=== PATIENT | male | born 2000 | race Caucasian/White ===

== ENCOUNTER 2020-08-29 03:44 | Inpatient (IN) ==
[2020-08-29] MEDS ORDERED: ONDANSETRON INJ 2 MG/ML 2 ML VIAL IV STA (04:05)
[2020-08-29] MEDS ORDERED: SODIUM CHLORIDE 0.9% 1000ML 1,000 ML IV SCH ×2 (04:15→05:30)
[2020-08-29] MEDS: MoRPHine SULFATE 4 MG/ML 1 ML CARP\\VIAL IV PRN ×2 (04:25→07:04)
[2020-08-29 04:36] LABS: Hematocrit (blood only) 43.3 % (42-52); Mean Corpuscular Hemoglobin 31.2 pg (25-34); Mean Corpuscular Hgb Conc 34.6 g/dL (32-36); Mean Platelet Volume 10.3 fL (7.4-10.4); Platelet Count 351 K/uL (130-400); RDW Coefficient of Variation 13.4 % (11.5-14.5); Red Blood Count 4.81 M/uL (4.7-6.1); White Blood Count 25.12 K/uL (4.8-10.8)
[2020-08-29 04:39] LABS: Appearance Urine Clear (Clear); Bacteria Urine Automated Negative (Negative); Blood Urine Negative (Negative); Color Urine Orange; Epithelial Cell Urine Auto >30 /lpf (0-5); Glucose Urine UA Negative (Negative); Ketones Urine 1+ (Negative); Leukocyte Esterase Urine Negative (Negative); Nitrite Urine Negative (Negative); Protein Urine 1+ (Negative); RBC Urine Automated 0-4 /hpf (0-4); Specific Gravity Urine 1.038 (1.000-1.030); Urobilinogen Urine Negative (Negative); pH Urine 6.5 (4.5-7.5)
[2020-08-29 04:57] LABS: Albumin Level 3.8 gm/dl (3.4-5.0); BUN Creatinine Ratio 17.6 (10-20); Calcium 8.9 mg/dl (8.5-10.1); Creatinine Clr Calc Pharmacy 146.4 ml/min; Est GFR (African American) 144.4 ml/min; Est GFR (Non-African American) 124.6 ml/min; Magnesium 1.9 mg/dl (1.8-2.4); Potassium 4.1 mmol/L (3.5-5.1)
[2020-08-29 05:00] LABS: Globulin 3.7 gm/dl (2.5-4.0); Total Protein 7.5 gm/dl (6.4-8.2)
[2020-08-29] MEDS ORDERED: cefOXitin 2,000 MG/60 ML BAG IV STA (05:22)
[2020-08-29 05:23] LABS: Bilirubin Urine 1+ (Negative)
[2020-08-29 05:25] LABS: Mucus Urine Present (None Prsent)
[2020-08-29 06:02] LABS: Basophils # (auto) 0.01 K/uL (0-0.2); Immature Granulocytes # (auto) 0.12 K/uL (0.00-0.02); Immature Granulocytes % (auto) 0.5 %; Lymphocytes # (auto) 0.87 K/uL (1.2-3.4); Lymphocytes % (auto) 3.5 %; Monocytes # (auto) 1.77 K/uL (0.11-0.59); Neutrophils # (auto) 22.35 K/uL (1.4-6.5)
--- NOTE | 2020-08-29 06:11 | Emergency Department Note ---
History of Present Illness General Chief complaint: Abdominal Pain Stated complaint: ABDOMINAL PAIN,VOMITING History of Present Illness Maximum Pain Intensity: 5 This is a 20-year-old male presenting to the emergency department for evaluation of nausea and vomiting symptoms for the past 3 days. The patient states that on 08/26/2020 he was out of town with friends and ate oysters. He has had these before without difficulty, however on 08/27/2020 he essentially had vomiting all day long. The patient has not had any appetite and began developing some generalized abdominal discomfort yesterday. The patient attempted to eat a banana around 12:01 AM on 08/29/2020 and immediately vomited this back up. He has not been able to hold down liquids. The patient is usuall y healthy, but did have COVID-19 infection 2 months ago. He feels like he has completely recovered from this. He has not had fevers or chills. No chest pain, chest tightness, or shortness of breath. His overall discomfort is a 5/10, dull, and nonradiating. Past Med/Surg History Medical History (Updated 08/29/20 @ 06:12 by David Franks PA-C) History of COVID-19 Surgical History (Updated 08/29/20 @ 07:11 by Kade Young MD) No significant past surgical history S/P tonsillectomy and adenoidectomy Social History Smoking Status: Never smoker Feels Safe at Home: Yes Review of Systems A total of 10 systems reviewed and were otherwise negative Physical Exam Vital Signs Vital Signs - 24 hr 08/29/20 03:50 08/29/20 04:30 08/29/20 05:30 Temperature 37.1 C Temperature Source Temporal Artery Scan Pulse Rate 110 H Pulse Rate [Finger] 94 H 86 Respiratory Rate 18 18 18 Respiratory Effort / Characteristics Non-Labored Spontaneous Respiratory Depth Normal Respiratory Pattern Regular Blood Pressure 149/80 H Blood Pressure [Left Arm] 139/74 137/85 Blood Pressure Mean 103 Blood Pressure Mean [Left Arm] 95 102 Blood Pressure Position Lying Pulse Oximetry 97 95 97 Oxygen Delivery Method Room Air Room Air Room Air Sepsis Recent Fever Within 48 Hours No Sepsis New/Unexplained Change in Mental Status No Sepsis Action Taken by Nursing No Action Required 08/29/20 07:08 Temperature Temperature Source Pulse Rate Pulse Rate [Finger] 96 H Respiratory Rate 18 Respiratory Effort / Characteristics Non-Labored Spontaneous Respiratory Depth Normal Respiratory Pattern Regular Blood Pressure Blood Pressure [Left Arm] 145/86 H Blood Pressure Mean Blood Pressure Mean [Left Arm] 105 Blood Pressure Position Pulse Oximetry 94 Oxygen Delivery Method Room Air Sepsis Recent Fever Within 48 Hours Sepsis New/Unexplained Change in Mental Status Sepsis Action Taken by Nursing VITALS: Vitals are noted on the nurse's note and reviewed by myself. Vital signs stable. GENERAL: Well-developed, well-nourished, white male, who is moderately uncomfortable on presentation. He is overall cooperative though. HEAD: Normocephalic atraumatic. NECK: Supple without nuchal rigidity. No lymphadenopathy. No thyromegaly. Cervical spine is nontender. HEART: Regular rate and rhythm without murmurs gallops or rubs. LUNGS: Clear to auscultation bilaterally without wheezes, rales or rhonchi. No retractions or accessory muscle use. ABDOMEN: Positive normal bowel sounds x 4. Soft with mild diffuse tenderness. No distinct point tenderness. No CVA tenderness. MUSCULOSKELETAL: No muscle atrophy, erythema, or edema noted. Full range of motion in all extremities. NEURO: Patient was alert and oriented to person place and time. CN II through XII grossly intact. No focal neurological deficits. Course Administered Medications Sodium Chloride (Nss 1000ml) 1,000 mls @ 250 mls/hr IV .Q4H GRZEGORZ Stop: 08/29/20 09:29 Last Admin: 08/29/20 05:27 Dose: 250 mls/hr Documented by: [id number] Morphine Sulfate (Morphine Sulfate 4 Mg/Ml 1 Ml Carp\Vial) 4 mg IV Q30M PRN PRN Reason: Pain Stop: 09/12/20 04:04 Last Admin: 08/29/20 07:04 Dose: 4 mg Documented by: [id number] Admin: 08/29/20 04:25 Dose: 4 mg Documented by: [id number] Discontinued Medications Sodium Chloride (Nss 1000ml) 1,000 mls @ 999 mls/hr IV .Q1H1M GRZEGORZ Stop: 08/29/20 05:15 Last Infusion: 08/29/20 05:39 Dose: 0 mls/hr Documented by: [id number] Admin: 08/29/20 04:24 Dose: 999 mls/hr Documented by: [id number] Cefoxitin Sodium (Mefoxin) 2,000 mg in 60 mls @ 100 mls/hr IV NOW STA Stop: 08/29/20 05:57 Last Infusion: 08/29/20 06:11 Dose: 0 mls/hr Documented by: [id number] Admin: 08/29/20 05:30 Dose: 100 mls/hr Documented by: [id number] Ondansetron HCl (Ondansetron Inj 2 Mg/Ml 2 Ml Vial) 4 mg IV NOW STA Stop: 08/29/20 04:06 Last Admin: 08/29/20 04:25 Dose: 4 mg Documented by: [id number] Medical Decision Making Differential Diagnosis Differential diagnosis: Etiologies such as biliary colic, cholecystitis, hepatitis, pancreatitis, cardiac disease, pancreatitis, gastritis, peptic ulcer disease, appendicitis, cystitis, diverticulitis, mesenteric ischemia, inflammatory bowel disease, ileus, bowel obstruction, testicular/adnexal torsion, aortic pathology, shingles, as well as others were considered Laboratory Data Result diagrams: 08/29/20 04:12 08/29/20 04:12 Lab Results 08/29/20 08/29/20 08/29/20 Range/Units 04:12 04:12 04:22 WBC 25.12 H (4.8-10.8) K/uL RBC 4.81 (4.7-6.1) M/uL Hgb 15.0 (14.0-18.0) g/dL Hct 43.3 (42-52) % MCV 90.0 (80-100) fL MCH 31.2 (25-34) pg MCHC 34.6 (32-36) g/dL RDW Std Deviation 44.0 (36.4-46.3) fL RDW Coeff of Mao 13.4 (11.5-14.5) % Plt Count 351 (130-400) K/uL MPV 10.3 (7.4-10.4) fL Immature Gran % (Auto) 0.5 % Neut % (Auto) 89.0 % Lymph % (Auto) 3.5 % [place] % (Auto) 7.0 % Eos % (Auto) 0.0 % Baso % (Auto) 0.0 % Neut # (Auto) 22.35 H (1.4-6.5) K/uL Lymph # (Auto) 0.87 L (1.2-3.4) K/uL [place] # (Auto) 1.77 H (0.11-0.59) K/uL Eos # (Auto) 0.00 (0-0.5) K/uL Baso # (Auto) 0.01 (0-0.2) K/uL Immature Gran # (Auto) 0.12 H (0.00-0.02) K/uL Sodium 139 (136-145) mmol/L Potassium 4.1 (3.5-5.1) mmol/L Chloride 105 (98-107) mmol/L Carbon Dioxide 26 (21-32) mmol/L Anion Gap 8.0 (3-11) BUN 15 (7-18) mg/dl Creatinine 0.85 (0.6-1.4) mg/dl Est Cr Clr Drug Dosing 146.4 ml/min Est GFR ( Amer) 144.4 ml/min Est GFR (Non-Af Amer) 124.6 ml/min BUN/Creatinine Ratio 17.6 (10-20) Glucose 121 H (70-99) mg/dl Calcium 8.9 (8.5-10.1) mg/dl Magnesium 1.9 (1.8-2.4) mg/dl Total Bilirubin 1.0 (0.2-1) mg/dl AST 12 L (15-37) U/L ALT 23 (12-78) U/L Alkaline Phosphatase 66 (45-117) U/L Total Creatine Kinase 96 (39-308) U/L Total Protein 7.5 (6.4-8.2) gm/dl Albumin 3.8 (3.4-5.0) gm/dl Globulin 3.7 (2.5-4.0) gm/dl Albumin/Globulin Ratio 1.0 (0.9-2) Lipase 72 L (73-393) U/L Urine Color [place] Urine Appearance Clear (Clear) Urine pH 6.5 (4.5-7.5) Ur Specific [place] 1.038 H (1.000-1.030) Urine Protein 1+ H (Negative) Urine Glucose (UA) Negative (Negative) Urine Ketones 1+ H (Negative) Urine Blood Negative (Negative) Urine Nitrite Negative (Negative) Urine Bilirubin 1+ H (Negative) Urine Urobilinogen Negative (Negative) Ur Leukocyte Esterase Negative (Negative) Urine WBC (Auto) 1-5 (0-5) /hpf Urine RBC (Auto) 0-4 (0-4) /hpf U Hyaline Cast (Auto) 5-10 H (0-5) /lpf U Epithel Cells (Auto) >30 H (0-5) /lpf Urine Bacteria (Auto) Negative (Negative) Ur Renal Epithelial Cell Not Reportable Urine Mucus Present A (None Prsent) COVID-19 Eval Order SARS-CoV-2 (PCR) (Negative) 08/29/20 08/29/20 Range/Units 05:28 05:28 WBC (4.8-10.8) K/uL RBC (4.7-6.1) M/uL Hgb (14.0-18.0) g/dL Hct (42-52) % MCV (80-100) fL MCH (25-34) pg MCHC (32-36) g/dL RDW Std Deviation (36.4-46.3) fL RDW Coeff of Mao (11.5-14.5) % Plt Count (130-400) K/uL MPV (7.4-10.4) fL Immature Gran % (Auto) % Neut % (Auto) % Lymph % (Auto) % [place] % (Auto) % Eos % (Auto) % Baso % (Auto) % Neut # (Auto) (1.4-6.5) K/uL Lymph # (Auto) (1.2-3.4) K/uL [place] # (Auto) (0.11-0.59) K/uL Eos # (Auto) (0-0.5) K/uL Baso # (Auto) (0-0.2) K/uL Immature Gran # (Auto) (0.00-0.02) K/uL Sodium (136-145) mmol/L Potassium (3.5-5.1) mmol/L Chloride (98-107) mmol/L Carbon Dioxide (21-32) mmol/L Anion Gap (3-11) BUN (7-18) mg/dl Creatinine (0.6-1.4) mg/dl Est Cr Clr Drug Dosing ml/min Est GFR ( Amer) ml/min Est GFR (Non-Af Amer) ml/min BUN/Creatinine Ratio (10-20) Glucose (70-99) mg/dl Calcium (8.5-10.1) mg/dl Magnesium (1.8-2.4) mg/dl Total Bilirubin (0.2-1) mg/dl AST (15-37) U/L ALT (12-78) U/L Alkaline Phosphatase (45-117) U/L Total Creatine Kinase (39-308) U/L Total Protein (6.4-8.2) gm/dl Albumin (3.4-5.0) gm/dl Globulin (2.5-4.0) gm/dl Albumin/Globulin Ratio (0.9-2) Lipase (73-393) U/L Urine Color Urine Appearance (Clear) Urine pH (4.5-7.5) Ur Specific [place] (1.000-1.030) Urine Protein (Negative) Urine Glucose (UA) (Negative) Urine Ketones (Negative) Urine Blood (Negative) Urine Nitrite (Negative) Urine Bilirubin (Negative) Urine Urobilinogen (Negative) Ur Leukocyte Esterase (Negative) Urine WBC (Auto) (0-5) /hpf Urine RBC (Auto) (0-4) /hpf U Hyaline Cast (Auto) (0-5) /lpf U Epithel Cells (Auto) (0-5) /lpf Urine Bacteria (Auto) (Negative) Ur Renal Epithelial Cell Urine Mucus (None Prsent) COVID-19 Eval Order Covid19 at [facility] SARS-CoV-2 (PCR) NEGATIVE (Negative) Imaging Data Radiologist's Impression: Abdomen/Pelvis CT 08/29/20 04:05 CT OF THE ABDOMEN AND PELVIS WITHOUT CONTRAST CLINICAL HISTORY: Abdominal pain, nausea and vomiting. COMPARISON STUDY: No previous studies for comparison. TECHNIQUE: Axial images of the abdomen and pelvis were obtained without IV contrast. Images were reviewed in the axial, sagittal, and coronal planes. Automated exposure control was utilized for the study. A dose lowering technique was utilized adhering to the principles of ALARA. FINDINGS: Lung bases are unremarkable. No pneumatosis, free air or portal venous gas is present. Evaluation of the abdomen and pelvis is suboptimal on this unenhanced exam. The liver, spleen, adrenal glands, kidneys and pancreas are normal. Is no biliary or pancreatic ductal dilatation. There is no evidence for a bowel obstruction. Note is made of multiple appendicoliths within the appendix which measure up to 1.7 cm. The appendix is markedly dilated, measuring 1.8 cm in caliber. There is extensive periappendiceal infiltration and fluid within the pelvis. Fluid within the right paracolic gutter is noted. No abscess identified on this unenhanced examination. No acute fracture or suspicious lesion is identified within the visualized skeletal structures. IMPRESSION: Findings consistent with acute appendicitis. Markedly dilated appendix which contains several appendicoliths. Extensive periappendiceal infiltration with fluid within the abdomen and pelvis. No abscess or free air. ACT 112: Negative or not required by law. Electronically signed by: Delgado Burns M.D. 08/29/2020 6:48 AM Preliminary Findings Only See Final Report For Complete Findings CT ABDOMEN & PELVIS Without Contrast: Inflamed and distended appendix in the pelvis. The appendix measures up to 20 mm in maximum diameter. There is a 17 x 9 mm appendicolith in the appendix. Extensive inflammatory changes seen in the surrounding fat. There is a small amount of free fluid in the pelvis. The findings are consistent with acute appendicitis. Radiologist: Jesu Rodriguez MD Study ready at 04:47 and initial results transmitted at 05:18 Communications: Clear Time Type Notes 08/29/20 05:22 Call Doctor Regarding Appendicitis, called Dr. Franks on 08/29 05:22 (-04:00) MDM Narrative Physical exam and history were performed. Nursing notes, EMR, and Medication List were personally reviewed. Patient appears to have nausea and vomiting symptoms after eating oysters a few days ago. On examination the patient is with some mild diffuse abdominal discomfort. He has not been able to eat for the past few days. The patient did provide a urine sample, and this was sitting out when I entered the room. His urine is very dark and he is likely quite dehydrated. IV access was established and labs were obtained. The patient was hydrated with normal saline and given IV morphine, and IV Zofran for comfort. Due to the extent of his symptoms I did elect to perform a CT scan without contrast as he would not be able to tolerate this. The patient's blood work is as above and was reviewed. He does have a markedly elevated white blood cell count of 25,000. He does not have a significant anemia or gross electrolyte imbalance. Urine is with ketones but not distinctly suggestive of infection. Lipase and transaminases are not diagnostic. Magnesium is 1.9. Potassium is 4.1. The patient CT scan is as above and was reviewed by myself and radiology. CT scan is concerning for acute appendicitis. This finding was discussed with both the patient at bedside, and with his mother by telephone ([phone]). Overall the patient does not appear well for discharge home. Case was discussed with the on-call general surgeon, Dr. Young, who will evaluate the patient at bedside. The patient was started on Mefoxin and Covid swab was performed per hospital policy. Please see Dr. Young's dictation for further patient course, plan, and disposition. The chart was completed utilizing [employer] Speech Voice Recognition Software. Grammatical errors, random word insertions, pronoun errors, and incomplete sentences are an occasional consequence of this system due to software limitations, ambient noise, and hardware issues. Any formal questions or concerns about the content, text, or information contained within the body of this dictation should be directly addressed to the provider for clarification. . Impression & Plan Acute appendicitis, Nausea and vomiting Discharge Plan Visit Data Chief Complaint: Abdominal Pain Stated Complaint: ABDOMINAL PAIN,VOMITING ED Provider: Faby García ED Midlevel Provider: David Franks Discharge Problem: Acute appendicitis, Nausea and vomiting Forms Stand Alone Forms: On License Of [facility] Referrals Referrals: [facility] [Primary Care Provider] - Discharge Problem: Acute appendicitis Qualifiers: Acute appendicitis type: unspecified acute appendicitis type Qualified Code(s): K35.80 - Unspecified acute appendicitis Nausea and vomiting Qualifiers: Vomiting type: unspecified Vomiting Intractability: non-intractable Qualified Code(s): R11.2 - Nausea with vomiting, unspecified
--- NOTE | 2020-08-29 06:49 | CT Scan Report ---
CT OF THE ABDOMEN AND PELVIS WITHOUT CONTRAST CLINICAL HISTORY: Abdominal pain, nausea and vomiting. COMPARISON STUDY: No previous studies for comparison. TECHNIQUE: Axial images of the abdomen and pelvis were obtained without IV contrast. Images were revi ewed in the axial, sagittal, and coronal planes. Automated exposure control was utilized for the jose dy. A dose lowering technique was utilized adhering to the principles of ALARA. FINDINGS: Lung bases are unremarkable. No pneumatosis, free air or portal venous gas is present. Eval uation of the abdomen and pelvis is suboptimal on this unenhanced exam. The liver, spleen, adrenal gl ands, kidneys and pancreas are normal. Is no biliary or pancreatic ductal dilatation. There is no hank dence for a bowel obstruction. Note is made of multiple appendicoliths within the appendix which sherrill ure up to 1.7 cm. The appendix is markedly dilated, measuring 1.8 cm in caliber. There is extensive p eriappendiceal infiltration and fluid within the pelvis. Fluid within the right paracolic gutter is n oted. No abscess identified on this unenhanced examination. No acute fracture or suspicious lesion is identified within the visualized skeletal structures. IMPRESSION: Findings consistent with acute appendicitis. Markedly dilated appendix which contains se veral appendicoliths. Extensive periappendiceal infiltration with fluid within the abdomen and pelvis . No abscess or free air. ACT 112: Negative or not required by law. Electronically signed by: Delgado Burns M.D. 08/29/2020 6:48 AM
--- NOTE | 2020-08-29 07:15 | History & Physical Report ---
Date of Service August 29, 2020 Assessment & Plan (1) Acute appendicitis: This patient's history physical and CT scan of which I reviewed the images as well as the report is consistent with acute appendicitis. I have recommended laparoscopic appendectomy. I explained the possible need to convert to an open procedure. We discussed the possible complications and I answered his questions. He has signed a consent form. History of Present Illness Chief Complaint: Abdominal pain Primary Care Provider: [facility] This is a 20-year-old male who presented to the emergency room for complaint of abdominal pain that began 2-1/2 days ago. It began in the periumbilical area as a dull ache. Now it is quite sharp. It is more towards the right side but he describes discomfort throughout his abdomen. He does not think he had fever but he has had nausea and multiple episodes of vomiting without hematemesis. His bowels have been moving regularly. He is never had pain similar to this in the past. He does describe having eaten oysters prior to the onset of the pain, nausea and vomiting. Past Med/Surg History Medical History (Updated 08/29/20 @ 06:12 by David Franks PA-C) History of COVID-19 Surgical History (Updated 08/29/20 @ 07:11 by Kade Young MD) No significant past surgical history S/P tonsillectomy and adenoidectomy Social History Smoking Status: Never smoker Feels Safe at Home: Yes Review of Systems Review of Systems: All systems reviewed & are unremarkable except as noted in HPI & below Physical Exam Constitutional: no acute distress Respiratory: normal respiratory effort, lungs clear to auscultation Cardiovascular: Rate/Rhythm: regular rate and regular rhythm Gastrointestinal (Abdomen): Inspection/Auscultation: + hypoactive bowel sounds; abdomen not distended Percussion/Palpation: + abdomen tender (right side and lower abdomen but primarily in the right lower quadrant) and abdomen soft Results & Data Results & Data ([facility]) Vital Signs (Past 12 Hours) Vital Signs Temp Pulse Pulse Resp BP BP Pulse Ox 08/29/20 05:30 86 18 137/85 97 08/29/20 04:30 94 H 18 139/74 95 08/29/20 03:50 37.1 C 110 H 18 149/80 H 97 Laboratory Results 08/29/20 08/29/20 08/29/20 Range/Units 05:28 05:28 04:22 WBC (4.8-10.8) K/uL RBC (4.7-6.1) M/uL Hgb (14.0-18.0) g/dL Hct (42-52) % MCV (80-100) fL MCH (25-34) pg MCHC (32-36) g/dL RDW Std Deviation (36.4-46.3) fL RDW Coeff of Mao (11.5-14.5) % Plt Count (130-400) K/uL MPV (7.4-10.4) fL Immature Gran % (Auto) % Neut % (Auto) % Lymph % (Auto) % [place] % (Auto) % Eos % (Auto) % Baso % (Auto) % Neut # (Auto) (1.4-6.5) K/uL Lymph # (Auto) (1.2-3.4) K/uL [place] # (Auto) (0.11-0.59) K/uL Eos # (Auto) (0-0.5) K/uL Baso # (Auto) (0-0.2) K/uL Immature Gran # (Auto) (0.00-0.02) K/uL Sodium (136-145) mmol/L Potassium (3.5-5.1) mmol/L Chloride (98-107) mmol/L Carbon Dioxide (21-32) mmol/L Anion Gap (3-11) BUN (7-18) mg/dl Creatinine (0.6-1.4) mg/dl Est Cr Clr Drug Dosing ml/min Est GFR ( Amer) ml/min Est GFR (Non-Af Amer) ml/min BUN/Creatinine Ratio (10-20) Glucose (70-99) mg/dl Calcium (8.5-10.1) mg/dl Magnesium (1.8-2.4) mg/dl Total Bilirubin (0.2-1) mg/dl AST (15-37) U/L ALT (12-78) U/L Alkaline Phosphatase (45-117) U/L Total Creatine Kinase (39-308) U/L Total Protein (6.4-8.2) gm/dl Albumin (3.4-5.0) gm/dl Globulin (2.5-4.0) gm/dl Albumin/Globulin Ratio (0.9-2) Lipase (73-393) U/L Urine Color [place] Urine Appearance Clear (Clear) Urine pH 6.5 (4.5-7.5) Ur Specific [place] 1.038 H (1.000-1.030) Urine Protein 1+ H (Negative) Urine Glucose (UA) Negative (Negative) Urine Ketones 1+ H (Negative) Urine Blood Negative (Negative) Urine Nitrite Negative (Negative) Urine Bilirubin 1+ H (Negative) Urine Urobilinogen Negative (Negative) Ur Leukocyte Esterase Negative (Negative) Urine WBC (Auto) 1-5 (0-5) /hpf Urine RBC (Auto) 0-4 (0-4) /hpf U Hyaline Cast (Auto) 5-10 H (0-5) /lpf U Epithel Cells (Auto) >30 H (0-5) /lpf Urine Bacteria (Auto) Negative (Negative) Ur Renal Epithelial Cell Not Reportable Urine Mucus Present A (None Prsent) COVID-19 Eval Order Covid19 at [facility] SARS-CoV-2 (PCR) NEGATIVE (Negative) 08/29/20 08/29/20 Range/Units 04:12 04:12 WBC 25.12 H (4.8-10.8) K/uL RBC 4.81 (4.7-6.1) M/uL Hgb 15.0 (14.0-18.0) g/dL Hct 43.3 (42-52) % MCV 90.0 (80-100) fL MCH 31.2 (25-34) pg MCHC 34.6 (32-36) g/dL RDW Std Deviation 44.0 (36.4-46.3) fL RDW Coeff of Mao 13.4 (11.5-14.5) % Plt Count 351 (130-400) K/uL MPV 10.3 (7.4-10.4) fL Immature Gran % (Auto) 0.5 % Neut % (Auto) 89.0 % Lymph % (Auto) 3.5 % [place] % (Auto) 7.0 % Eos % (Auto) 0.0 % Baso % (Auto) 0.0 % Neut # (Auto) 22.35 H (1.4-6.5) K/uL Lymph # (Auto) 0.87 L (1.2-3.4) K/uL [place] # (Auto) 1.77 H (0.11-0.59) K/uL Eos # (Auto) 0.00 (0-0.5) K/uL Baso # (Auto) 0.01 (0-0.2) K/uL Immature Gran # (Auto) 0.12 H (0.00-0.02) K/uL Sodium 139 (136-145) mmol/L Potassium 4.1 (3.5-5.1) mmol/L Chloride 105 (98-107) mmol/L Carbon Dioxide 26 (21-32) mmol/L Anion Gap 8.0 (3-11) BUN 15 (7-18) mg/dl Creatinine 0.85 (0.6-1.4) mg/dl Est Cr Clr Drug Dosing 146.4 ml/min Est GFR ( Amer) 144.4 ml/min Est GFR (Non-Af Amer) 124.6 ml/min BUN/Creatinine Ratio 17.6 (10-20) Glucose 121 H (70-99) mg/dl Calcium 8.9 (8.5-10.1) mg/dl Magnesium 1.9 (1.8-2.4) mg/dl Total Bilirubin 1.0 (0.2-1) mg/dl AST 12 L (15-37) U/L ALT 23 (12-78) U/L Alkaline Phosphatase 66 (45-117) U/L Total Creatine Kinase 96 (39-308) U/L Total Protein 7.5 (6.4-8.2) gm/dl Albumin 3.8 (3.4-5.0) gm/dl Globulin 3.7 (2.5-4.0) gm/dl Albumin/Globulin Ratio 1.0 (0.9-2) Lipase 72 L (73-393) U/L Urine Color Urine Appearance (Clear) Urine pH (4.5-7.5) Ur Specific [place] (1.000-1.030) Urine Protein (Negative) Urine Glucose (UA) (Negative) Urine Ketones (Negative) Urine Blood (Negative) Urine Nitrite (Negative) Urine Bilirubin (Negative) Urine Urobilinogen (Negative) Ur Leukocyte Esterase (Negative) Urine WBC (Auto) (0-5) /hpf Urine RBC (Auto) (0-4) /hpf U Hyaline Cast (Auto) (0-5) /lpf U Epithel Cells (Auto) (0-5) /lpf Urine Bacteria (Auto) (Negative) Ur Renal Epithelial Cell Urine Mucus (None Prsent) COVID-19 Eval Order SARS-CoV-2 (PCR) (Negative) Diagnostic Findings CT scan of the abdomen and pelvis shows a 20 mm appendix with surrounding inflammation but without evidence of perforation or abscess (1) Acute appendicitis Acute appendicitis type: unspecified acute appendicitis type Qualified Code(s): K35.80 - Unspecified acute appendicitis
--- NOTE | 2020-08-29 08:08 | Anesthesiology Consultation ---
Date of Service August 29, 2020 History Surgery Operation Date: 08/29/20 12:00 Proposed Procedures p Laparoscopic Appendectomy - Kade Young MD Height/Weight Height: 5 ft 11 in Weight: 85.6 kg Allergies Allergy/AdvReac Type Severity Reaction Status Date / Time No Known Allergies Allergy Unverified 08/29/20 07:28 Medications Home Medications Medication Instructions Recorded Confirmed Last Taken No Known Home Medications 08/29/20 08/29/20 Unknown Active Medications Generic Name Dose Route Start Last Admin Trade Name Freq PRN Reason Stop Dose Admin Sodium Chloride 1,000 mls @ 250 mls/hr 08/29/20 05:30 08/29/20 05:27 Nss 1000ml IV 08/29/20 09:29 250 mls/hr .Q4H GRZEGORZ Administration Morphine Sulfate 4 mg 08/29/20 04:05 08/29/20 07:04 Morphine Sulfate 4 Mg/Ml 1 Ml Carp\Vial IV 09/12/20 04:04 4 mg Q30M PRN Administration Pain Past Medical History Medical History History of COVID-19 Past Surgical History Surgical History No significant past surgical history S/P tonsillectomy and adenoidectomy Social History Smoking Status: Never smoker Physical Exam Vital Signs Last Vital Signs Temp 37.1 C 08/29/20 03:50 Pulse 96 H 08/29/20 07:08 Resp 18 08/29/20 07:08 BP 145/86 H 08/29/20 07:08 Pulse Ox 94 08/29/20 07:08 Testing Laboratory Results 08/29/20 04:12 08/29/20 04:12 Urine Color [place] 08/29/20 04:22 Urine Appearance Clear (Clear) 08/29/20 04:22 Urine pH 6.5 (4.5-7.5) 08/29/20 04:22 Ur Specific [place] 1.038 (1.000-1.030) H 08/29/20 04:22 Urine Protein 1+ (Negative) H 08/29/20 04:22 Urine Glucose (UA) Negative (Negative) 08/29/20 04:22 Urine Ketones 1+ (Negative) H 08/29/20 04:22 Urine Nitrite Negative (Negative) 08/29/20 04:22 Ur Leukocyte Esterase Negative (Negative) 08/29/20 04:22 Urine WBC (Auto) 1-5 /hpf (0-5) 08/29/20 04:22 Urine RBC (Auto) 0-4 /hpf (0-4) 08/29/20 04:22 U Hyaline Cast (Auto) 5-10 /lpf (0-5) H 08/29/20 04:22 U Epithel Cells (Auto) >30 /lpf (0-5) H 08/29/20 04:22 Urine Bacteria (Auto) Negative (Negative) 08/29/20 04:22
[2020-08-29] MEDS ORDERED: PROPOFOL IV EMULSION 10 MG/ML 20 ML VIAL IV ONE ×2 (08:21→10:30)
[2020-08-29] MEDS ORDERED: fentaNYL citrate 100 MCG/2 ML VIAL ONE ×2 (08:21→09:28)
[2020-08-29] MEDS ORDERED: ONDANSETRON INJ 2 MG/ML 2 ML VIAL ONE (08:21)
[2020-08-29] MEDS ORDERED: ROCURONIUM BROMIDE 10 MG/ML 5 ML VIAL IV ONE (08:21)
[2020-08-29] MEDS ORDERED: DEXAMETHASONE SOD INJ 4 MG/ML VIAL ONE ×2 (08:21→09:23)
[2020-08-29] MEDS ORDERED: LIDOCAINE 2% 2 ML VIAL/AMP(20MG/ML) INFIL ONE (08:21)
[2020-08-29] MEDS ORDERED: HEPARIN (PORCINE) 1000 UNIT/ML 10 ML (CATH LAB USE ONLY) ONE (08:51)
[2020-08-29] MEDS ORDERED: BUPIVACAINE 0.5 % 5 MG/1 ML MPF 30ML VIAL ONE (08:51)
[2020-08-29] MEDS ORDERED: SCOPOLAMINE 1 MG TDSY TD ONE (08:52)
[2020-08-29] MEDS ORDERED: HYDROmorphone INJ 1 MG/ML SYRINGE IV PRN (08:56)
[2020-08-29] MEDS ORDERED: ONDANSETRON INJ 2 MG/ML 2 ML VIAL IV PRN (08:56)
[2020-08-29] MEDS ORDERED: ePHEDrine sulfate 50 MG/ML AMP IV PRN (08:56)
[2020-08-29] MEDS ORDERED: ATROPINE SULFATE 0.1 MG/ML 10ML SYR IV PRN (08:56)
[2020-08-29] MEDS ORDERED: GLYCOPYRROLATE 0.2 MG/ML VIAL ONE (09:33)
[2020-08-29] MEDS ORDERED: NEOSTIGMINE METHYLSULFATE 1 MG/ML 10ML VIAL ONE (09:33)
--- NOTE | 2020-08-29 11:04 | Post Operative Brief Note ---
Immediate Post Op Note v1 Date of Surgery August 29, 2020 Pre & Post Diagnosis Operation Date: 08/29/20 12:00 Pre-Op Diagnosis: appendicitis Post-Op Diagnosis: appendicitis I identified the patient and participated in the time-out.: Yes Procedure Operation Date: 08/29/20 12:00 Actual Procedures p Laparoscopic Appendectomy(Not Applicable) - Kade Young MD Surgeon Kade Young MD [employer] Angie Adams PA-C Estimated Blood Loss 10 Findings Consistent with Post-Op Diagnosis Drains [place] Catheter
[2020-08-29] MEDS: fentaNYL citrate 100 MCG/2 ML VIAL IV PRN ×2 (11:40→11:55)
--- NOTE | 2020-08-29 12:14 | Anesthesiology Progress Note ---
Date of Service August 29, 2020 Anesthesia Post Procedure Vital Signs Vital Signs: Temp Pulse Pulse Pulse Resp BP BP 08/29/20 12:00 37.4 C 66 19 140/81 08/29/20 11:50 75 16 158/90 H 08/29/20 11:40 74 19 145/99 H 08/29/20 11:30 36.4 C L 75 17 152/86 H 08/29/20 11:20 36.1 C L 103 H 18 140/94 08/29/20 08:54 38 C H 103 H 18 148/89 H 08/29/20 07:08 96 H 18 145/86 H 08/29/20 05:30 86 18 137/85 08/29/20 04:30 94 H 18 139/74 08/29/20 03:50 37.1 C 110 H 18 149/80 H Pulse Ox 08/29/20 12:00 94 08/29/20 11:50 98 08/29/20 11:40 98 08/29/20 11:30 98 08/29/20 11:20 98 08/29/20 08:54 95 08/29/20 07:08 94 08/29/20 05:30 97 08/29/20 04:30 95 08/29/20 03:50 97 Pain Intensity Abdomen: Pain Intensity: 4 Transfer of Care Handoff Completed per policy Notes Mental Status: alert / awake / arousable and participated in evaluation Patient Amnestic to Procedure: Yes Nausea / Vomiting: adequately controlled Pain: adequately controlled Airway Patency, RR, SpO2: stable & adequate BP & HR: stable & adequate Hydration State: stable & adequate Anesthetic Complications: no major complications apparent and Pt Satisfied with anesthetic care
[2020-08-29] MEDS ORDERED: MoRPHine SULFATE 4 MG/ML 1 ML CARP\\VIAL IV PRN (12:32)
[2020-08-29] MEDS: SODIUM CHLORIDE 0.9% 1000ML 1,000 ML IV SCH (13:30)
[2020-08-29] MEDS: oxyCODONE/ACETAMINOPHEN 5mg/325mg TAB PO PRN ×2 (13:30→19:27)
--- NOTE | 2020-08-29 13:30 | Operative Report (OR) ---
DATE OF OPERATION: 08/29/2020 PREOPERATIVE DIAGNOSIS: Acute appendicitis. POSTOPERATIVE DIAGNOSIS: Acute appendicitis. PROCEDURE: Laparoscopic appendectomy. SURGEON: Kade Young MD. [employer]: Angie Adams PA-C. FINDINGS: The appendix was markedly thickened and hyperemic and firm. Towards the distal half, it appeared gangrenous as well. There did not appear to be perforation or abscess. There was turbid fluid within the right lower quadrant and pelvis. There was also some of that in the left lower quadrant. This was cultured. The appendix was densely adherent to the pelvis and lower abdominal sidewall. The base of the appendix for approximately 2 cm was normal. The cecum at the base of the appendix was normal. There was a lot of thickening of the peritoneum and mesentery of the appendix as well as the fatty apron on the anterior surface of the very terminal ileum. There was an area of thickened, most likely inflammatory tissue that was also removed. The visible bowel appeared normal. DESCRIPTION OF PROCEDURE: The patient was given general anesthetic. The area was prepped and draped in the usual sterile fashion. The skin inferior to the umbilicus was anesthetized with 0.5% Marcaine. Skin incision was made, carried down through the subcutaneous tissue to the fascia, which was grasped with 2 Korey clamps and incised between. The peritoneum was identified, incised and the introducer was placed bluntly. The abdomen was then insufflated to a pressure of 15 mmHg with carbon dioxide. The lower midline and left lower quadrant introducer sites were chosen. The skin layers were anesthetized with the same local. Skin incisions were made and the introducers were placed under direct vision. I placed upward and lateral traction on the cecum. The thickened fat was felt to be adherent to the appendix. I then mobilized the cecum laterally by dividing the peritoneal attachments, which allowed better mobilization of the cecum. I then began to dissect what turned out to be simply inflammatory tissue working from anterior to posterior along the wall of the cecum. The patient was placed in reverse Trendelenburg position and that allowed me then to visualize the appendix, which was adherent to the pelvic sidewall as well as the abdominal wall. The wall of the distal cecum was also fairly densely adherent to the wall of the appendix. I divided those attachments bluntly. I then divided the posterior attachments using the LigaSure device. That allowed me to elevate the appendix away from the wall and identify the base of the appendix after it was away from the thickened tissue medially. I was able to easily establish a plane between the mesoappendix and the appendix, and the appendix was then amputated off the cecum at the level of the cecum. That allowed me to then visualize the mesoappendix, which was even more densely adherent posteriorly. I divided those attachments and elevated it. The peritoneal attachments were divided using the LigaSure. The remainder of the mesoappendix was divided using the Endo-STEVE. During the initial dissection, the appendiceal artery was encountered and was controlled with the LigaSure. The appendix was placed into an Endobag and brought out through the left lower quadrant introducer site where I had to broaden the fascial opening in order to extract it within the bag, but that was accomplished. That introducer was replaced. The thickened, what I think was inflammatory tissue was then obvious. It was difficult to tell exactly if it had been part of the appendix or was simply inflammatory tissue. This was away from the wall of the colon and amputated using the stapler where necessary, but also using the LigaSure. This was placed into a second bag and brought out through the left lower quadrant introducer site. The right lower quadrant, pelvis and right upper quadrant was then irrigated and the irrigation was removed. Some of the fluid was sent for culture. The left lower quadrant was then irrigated and that irrigation was removed. There was no large amount of irrigation fluid left behind. The gas was allowed to escape and the introducers were removed. The fascia of the umbilical and left lower quadrant introducer sites was closed with interrupted 0 Vicryl. Skin of all the incisions was closed with 4-0 Monocryl in either an interrupted or running subcuticular fashion. The skin was cleansed, dried, benzoin placed, Steri- Strips applied. The estimated blood loss was 10 mL. Sponge, needle and instrument counts were correct prior to closure. The patient tolerated the surgical procedure without complication and was transferred to recovery room. The physician internal medicine physician assistant was present during the entire case and helped with obtaining access to the abdomen, operation of the camera, retraction and closure. Job ID: [id number] [facility]
[2020-08-29] MEDS ORDERED: PIPERACILL/TAZOBAC CONSULT ACTIVE PRN (13:57)
[2020-08-29] MEDS ORDERED: PIPERACILLIN/TAZOBACTAM 3.375 GM in DEXTROSE 5% 100 ML IV ONE (14:30)
[2020-08-29] MEDS: PIPERACILLIN/TAZOBACTAM 3.375 GM in DEXTROSE 5% 100 ML IV SCH (21:10)
[2020-08-30] MEDS: PIPERACILLIN/TAZOBACTAM 3.375 GM in DEXTROSE 5% 100 ML IV SCH ×3 (03:35→21:56)
[2020-08-30] MEDS: oxyCODONE/ACETAMINOPHEN 5mg/325mg TAB PO PRN ×4 (03:35→21:57)
[2020-08-30 05:49] LABS: Hematocrit (blood only) 38.3 % (42-52); Hemoglobin 12.9 g/dL (14.0-18.0); Immature Granulocytes # (auto) 0.05 K/uL (0.00-0.02); Immature Granulocytes % (auto) 0.3 %; Lymphocytes # (auto) 1.89 K/uL (1.2-3.4); Lymphocytes % (auto) 11.6 %; Mean Corpuscular Hemoglobin 30.8 pg (25-34); Mean Corpuscular Hgb Conc 33.7 g/dL (32-36); Mean Corpuscular Volume 91.4 fL (80-100); Mean Platelet Volume 10.1 fL (7.4-10.4); Monocytes % (auto) 9.8 %; Neutrophils # (auto) 12.81 K/uL (1.4-6.5); Neutrophils % (auto) 78.3 %; Platelet Count 271 K/uL (130-400); RDW Coefficient of Variation 13.4 % (11.5-14.5); RDW Standard Deviation 44.9 fL (36.4-46.3); Red Blood Count 4.19 M/uL (4.7-6.1); White Blood Count 16.35 K/uL (4.8-10.8)
--- NOTE | 2020-08-30 06:47 | Surgery Progress Note ---
Date of Service August 30, 2020 Assessment & Plan (1) Acute appendicitis: Postoperative day #1 status post laparoscopic appendectomy Hemodynamically stable Encouraged ambulation today Would continue IV antibiotics today and hopefully Gram stain at least will be available If doing well tomorrow consider discharge with oral antibiotics Encouraged p.o. as tolerated Admission and Anticipated Discharge Date Admission Date: August 29, 2020 Subjective Postoperative day #1 status post laparoscopic appendectomy Having mild to moderate discomfort when he ambulates Denies nausea and vomiting Level of pain is drastically decreased over preop Has not had bowel movement as yet Ate his full tray for supper last night Physical Exam Gastrointestinal (Abdomen): Inspection/Auscultation: + hypoactive bowel sounds; abdomen not distended Percussion/Palpation: + abdomen tender (Mostly incisional) and abdomen soft Results & Data ([facility]) Vital Signs (Past 12 Hours) Vital Signs Temp Pulse Resp BP Pulse Ox 08/30/20 03:10 36.9 C 64 14 118/73 98 08/29/20 22:36 37.0 C 58 L 16 111/71 97 08/29/20 19:30 36.9 C 68 16 127/76 97 Laboratory Results 08/30/20 Range/Units 05:25 WBC 16.35 H (4.8-10.8) K/uL RBC 4.19 L (4.7-6.1) M/uL Hgb 12.9 L (14.0-18.0) g/dL Hct 38.3 L (42-52) % MCV 91.4 (80-100) fL MCH 30.8 (25-34) pg MCHC 33.7 (32-36) g/dL RDW Std Deviation 44.9 (36.4-46.3) fL RDW Coeff of Mao 13.4 (11.5-14.5) % Plt Count 271 (130-400) K/uL MPV 10.1 (7.4-10.4) fL Immature Gran % (Auto) 0.3 % Neut % (Auto) 78.3 % Lymph % (Auto) 11.6 % [place] % (Auto) 9.8 % Eos % (Auto) 0.0 % Baso % (Auto) 0.0 % Neut # (Auto) 12.81 H (1.4-6.5) K/uL Lymph # (Auto) 1.89 (1.2-3.4) K/uL [place] # (Auto) 1.60 H (0.11-0.59) K/uL Eos # (Auto) 0.00 (0-0.5) K/uL Baso # (Auto) 0.00 (0-0.2) K/uL Immature Gran # (Auto) 0.05 H (0.00-0.02) K/uL Diagnostic Findings Gram stain from intra-abdominal fluid and culture are both pending (1) Acute appendicitis Acute appendicitis type: unspecified acute appendicitis type Qualified Code(s): K35.80 - Unspecified acute appendicitis
[2020-08-30] MEDS ORDERED: ACETAMINOPHEN 325 MG TAB PO PRN (08:11)
[2020-08-30] MEDS: DOCUSATE SODIUM 100 MG CAP PO SCH ×2 (09:02→21:57)
[2020-08-30] MEDS: SODIUM CHLORIDE 0.9% 1000ML 1,000 ML IV SCH (13:01)
[2020-08-30] MEDS: ONDANSETRON INJ 2 MG/ML 2 ML VIAL IV PRN (13:04)
[2020-08-30] MEDS: SIMETHICONE 80 MG CHEW PO PRN (17:47)
[2020-08-31] MEDS: oxyCODONE/ACETAMINOPHEN 5mg/325mg TAB PO PRN ×2 (03:02→08:13)
[2020-08-31] MEDS: PIPERACILLIN/TAZOBACTAM 3.375 GM in DEXTROSE 5% 100 ML IV SCH ×3 (04:09→19:46)
[2020-08-31 06:17] LABS: Mean Corpuscular Hgb Conc 34.2 g/dL (32-36); Mean Platelet Volume 10.4 fL (7.4-10.4); Platelet Count 332 K/uL (130-400)
[2020-08-31 06:46] LABS: Basophils # (auto) 0.01 K/uL (0-0.2); Basophils % (auto) 0.1 %; Hematocrit (blood only) 40.1 % (42-52); Hemoglobin 13.7 g/dL (14.0-18.0); Immature Granulocytes # (auto) 0.05 K/uL (0.00-0.02); Immature Granulocytes % (auto) 0.3 %; Lymphocytes # (auto) 1.44 K/uL (1.2-3.4); Lymphocytes % (auto) 9.1 %; Mean Corpuscular Hemoglobin 31.1 pg (25-34); Mean Corpuscular Volume 90.9 fL (80-100); Monocytes # (auto) 1.47 K/uL (0.11-0.59); Monocytes % (auto) 9.3 %; Neutrophils # (auto) 12.92 K/uL (1.4-6.5); Neutrophils % (auto) 81.2 %; RBC Morphology Unremarkable; RDW Coefficient of Variation 13.1 % (11.5-14.5); RDW Standard Deviation 43.6 fL (36.4-46.3); Red Blood Count 4.41 M/uL (4.7-6.1); White Blood Count 15.89 K/uL (4.8-10.8)
[2020-08-31] MEDS: DOCUSATE SODIUM 100 MG CAP PO SCH ×2 (08:11→19:46)
[2020-08-31 10:42] LABS: Creatinine Clr Calc Pharmacy 165.9 ml/min; Est GFR (African American) > 150.0 ml/min; Est GFR (Non-African American) 131.1 ml/min
--- NOTE | 2020-08-31 11:07 | Surgery Progress Note ---
Date of Service August 31, 2020 Assessment & Plan (1) Acute appendicitis: Postoperative day #2 status post laparoscopic appendectomy Hemodynamically stable afebrile Leukocytosis persists but improving 15k today he is diaphoretic but not febrile, pt feels due to room temperature and sweats easily moderate pain , mostly gas pains, improving slowly passing gas Plan: Continue clear liquids as only passing small amount of gas and low appetite Continue IV antibiotics given persistent leukocytosis, await culture re- incubation Encouraged ambulation today Will ad Toradol as needed for pain to try to limit narcotics incentive spirometry, scds cbc in am Dr. Garnica has seen and examined pt, agrees with above Admission and Anticipated Discharge Date Admission Date: August 29, 2020 Subjective feeling better than last night in regards to gas pain but still having moderate pain in the abdomen no nausea or vomiting appetite is low passing small amount of gas but no bowel movement no chest pain or shortness of breath sweating but feels this is due to the room temperature, no chills Physical Exam Constitutional: well developed, well nourished, cooperative and + diaphoretic; no acute distress and not ill appearing Respiratory: normal respiratory effort; no respiratory distress and no labored breathing Gastrointestinal (Abdomen): Inspection/Auscultation: abdomen normal to inspection, + abdomen distended (mild) and + abdominal surgical incision (covered with dressings) Percussion/Palpation: + abdomen tender (generalized) and abdomen soft; no guarding and abdomen not rigid Skin: no rashes, warm and dry Psychiatric: A+Ox3, euthymic affect Results & Data ([facility]) Vital Signs (Past 12 Hours) Vital Signs Temp Pulse Resp BP Pulse Ox 08/31/20 07:19 36.6 C 59 L 16 126/76 96 08/30/20 23:04 37.2 C 74 16 130/77 93 Laboratory Results 08/31/20 08/31/20 Range/Units 09:53 05:51 WBC 15.89 H (4.8-10.8) K/uL RBC 4.41 L (4.7-6.1) M/uL Hgb 13.7 L (14.0-18.0) g/dL Hct 40.1 L (42-52) % MCV 90.9 (80-100) fL MCH 31.1 (25-34) pg MCHC 34.2 (32-36) g/dL RDW Std Deviation 43.6 (36.4-46.3) fL RDW Coeff of Mao 13.1 (11.5-14.5) % Plt Count 332 (130-400) K/uL MPV 10.4 (7.4-10.4) fL Immature Gran % (Auto) 0.3 % Neut % (Auto) 81.2 % Lymph % (Auto) 9.1 % [place] % (Auto) 9.3 % Eos % (Auto) 0.0 % Baso % (Auto) 0.1 % Neut # (Auto) 12.92 H (1.4-6.5) K/uL Lymph # (Auto) 1.44 (1.2-3.4) K/uL [place] # (Auto) 1.47 H (0.11-0.59) K/uL Eos # (Auto) 0.00 (0-0.5) K/uL Baso # (Auto) 0.01 (0-0.2) K/uL Immature Gran # (Auto) 0.05 H (0.00-0.02) K/uL RBC Morphology Unremarkable Creatinine 0.75 (0.6-1.4) mg/dl Est Cr Clr Drug Dosing 165.9 ml/min Est GFR ( Amer) > 150.0 ml/min Est GFR (Non-Af Amer) 131.1 ml/min Microbiology 08/29/20 11:00 Gram Stain - Final Peritoneal Fluid Aerobic and Anaerobic Culture - Preliminary Pin-point growth present, reincubating. (1) Acute appendicitis Acute appendicitis type: unspecified acute appendicitis type Qualified Code(s): K35.80 - Unspecified acute appendicitis
[2020-08-31] MEDS: SODIUM CHLORIDE 0.9% 1000ML 1,000 ML IV SCH (12:03)
[2020-08-31] MEDS: SIMETHICONE 80 MG CHEW PO PRN ×2 (16:31→22:41)
[2020-08-31] MEDS: ONDANSETRON INJ 2 MG/ML 2 ML VIAL IV PRN (16:31)
[2020-08-31] MEDS: KETOROLAC 30 MG/ML VIAL IV PRN ×2 (16:36→22:41)
[2020-08-31] MEDS ORDERED: bisacodyL 10 MG SUPP PR STA (16:54)
[2020-08-31] MEDS: PROMETHAZINE HCL 12.5 MG in SODIUM CHLORIDE 0.9% 50 ML IV PRN (21:00)
[2020-09-01] MEDS: ONDANSETRON INJ 2 MG/ML 2 ML VIAL IV PRN ×3 (02:09→18:00)
[2020-09-01] MEDS: oxyCODONE/ACETAMINOPHEN 5mg/325mg TAB PO PRN ×3 (02:09→19:25)
[2020-09-01] MEDS: PIPERACILLIN/TAZOBACTAM 3.375 GM in DEXTROSE 5% 100 ML IV SCH ×3 (05:15→20:33)
[2020-09-01 06:25] LABS: Basophils # (auto) 0.02 K/uL (0-0.2); Basophils % (auto) 0.2 %; Eosinophils # (auto) 0.02 K/uL (0-0.5); Eosinophils % (auto) 0.2 %; Hematocrit (blood only) 40.4 % (42-52); Hemoglobin 13.3 g/dL (14.0-18.0); Immature Granulocytes # (auto) 0.02 K/uL (0.00-0.02); Immature Granulocytes % (auto) 0.2 %; Lymphocytes % (auto) 9.4 %; Mean Corpuscular Hemoglobin 30.5 pg (25-34); Mean Corpuscular Hgb Conc 32.9 g/dL (32-36); Mean Corpuscular Volume 92.7 fL (80-100); Mean Platelet Volume 10.1 fL (7.4-10.4); Monocytes # (auto) 1.44 K/uL (0.11-0.59); Monocytes % (auto) 11.3 %; Neutrophils # (auto) 10.09 K/uL (1.4-6.5); Neutrophils % (auto) 78.7 %; Platelet Count 340 K/uL (130-400); RDW Coefficient of Variation 12.9 % (11.5-14.5); RDW Standard Deviation 44.2 fL (36.4-46.3); Red Blood Count 4.36 M/uL (4.7-6.1); White Blood Count 12.79 K/uL (4.8-10.8)
[2020-09-01] MEDS: DOCUSATE SODIUM 100 MG CAP PO SCH ×2 (07:29→20:33)
--- NOTE | 2020-09-01 07:38 | Surgery Progress Note ---
Date of Service September 01, 2020 Assessment & Plan (1) Acute appendicitis: Postoperative day #3 status post laparoscopic appendectomy There appears to be some growth on the peritoneal fluid cultures Continue antibiotics GI function returning encouraged p.o. Encouraged ambulation We will continue with IV antibiotics and would keep for another day until bowel function returns Admission and Anticipated Discharge Date Admission Date: August 31, 2020 Subjective Postoperative day #3 status post laparoscopic appendectomy Feels better this morning Ambulated much more in the halls yesterday Had a bowel movement that was small and is passing flatus this morning Denies nausea at the present time Physical Exam Gastrointestinal (Abdomen): Inspection/Auscultation: normal bowel sounds; abdomen not distended Percussion/Palpation: + abdomen tender (Mild to minimal incisional) and abdomen soft Results & Data ([facility]) Vital Signs (Past 12 Hours) Vital Signs Temp Pulse Resp BP Pulse Ox 09/01/20 07:13 36.9 C 72 16 113/69 95 08/31/20 23:28 37.1 C 79 18 118/72 96 Laboratory Results 09/01/20 08/31/20 Range/Units 06:06 09:53 WBC 12.79 H (4.8-10.8) K/uL RBC 4.36 L (4.7-6.1) M/uL Hgb 13.3 L (14.0-18.0) g/dL Hct 40.4 L (42-52) % MCV 92.7 (80-100) fL MCH 30.5 (25-34) pg MCHC 32.9 (32-36) g/dL RDW Std Deviation 44.2 (36.4-46.3) fL RDW Coeff of Mao 12.9 (11.5-14.5) % Plt Count 340 (130-400) K/uL MPV 10.1 (7.4-10.4) fL Immature Gran % (Auto) 0.2 % Neut % (Auto) 78.7 % Lymph % (Auto) 9.4 % [place] % (Auto) 11.3 % Eos % (Auto) 0.2 % Baso % (Auto) 0.2 % Neut # (Auto) 10.09 H (1.4-6.5) K/uL Lymph # (Auto) 1.20 (1.2-3.4) K/uL [place] # (Auto) 1.44 H (0.11-0.59) K/uL Eos # (Auto) 0.02 (0-0.5) K/uL Baso # (Auto) 0.02 (0-0.2) K/uL Immature Gran # (Auto) 0.02 (0.00-0.02) K/uL Creatinine 0.75 (0.6-1.4) mg/dl Est Cr Clr Drug Dosing 165.9 ml/min Est GFR ( Amer) > 150.0 ml/min Est GFR (Non-Af Amer) 131.1 ml/min Diagnostic Findings Cultures from the intraperitoneal fluid show small amount of growth of what appears to be mixed gastrointestinal organisms (1) Acute appendicitis Acute appendicitis type: unspecified acute appendicitis type Qualified Code(s): K35.80 - Unspecified acute appendicitis
[2020-09-01] MEDS: SODIUM CHLORIDE 0.9% 1000ML 1,000 ML IV SCH (12:06)
[2020-09-01] MEDS: SIMETHICONE 80 MG CHEW PO PRN (18:00)
[2020-09-01] MEDS: PROMETHAZINE HCL 12.5 MG in SODIUM CHLORIDE 0.9% 50 ML IV PRN (20:10)
[2020-09-01] MEDS ORDERED: POTASSIUM CITRATE 10 MEQ TAB PO SCH (21:00)
[2020-09-02] MEDS: oxyCODONE/ACETAMINOPHEN 5mg/325mg TAB PO PRN (00:29)
[2020-09-02] MEDS: SIMETHICONE 80 MG CHEW PO PRN ×2 (00:29→12:38)
[2020-09-02] MEDS: PIPERACILLIN/TAZOBACTAM 3.375 GM in DEXTROSE 5% 100 ML IV SCH (04:01)
[2020-09-02] MEDS: SODIUM CHLORIDE 0.9% 1000ML 1,000 ML IV SCH (06:28)
--- NOTE | 2020-09-02 07:18 | Surgery Progress Note ---
Date of Service September 02, 2020 Assessment & Plan (1) Acute appendicitis: Postoperative day #4 status post laparoscopic appendectomy Abdominal exam is benign We will order suppository to encourage distal GI function Encouraged ambulation Encourage diet If he begins to pass flatus or begins to feel better this afternoon he can be discharged He will be discharged on Augmentin and Flagyl. Need to follow-up in 2 weeks Admission and Anticipated Discharge Date Admission Date: August 31, 2020 Subjective Postoperative day #4 status post laparoscopic appendectomy Having what he refers to as "gas pain Has not passed a lot of flatus Has not had additional bowel movement Tolerated diet at some points but then had nausea but did not vomit Physical Exam Gastrointestinal (Abdomen): Inspection/Auscultation: normal bowel sounds and + abdominal surgical incision (Clean, dry and intact); abdomen not distended Percussion/Palpation: abdomen soft; abdomen nontender Results & Data ([facility]) Vital Signs (Past 12 Hours) Vital Signs Temp Pulse Resp BP Pulse Ox 09/01/20 23:10 36.7 C 73 14 116/71 98 Laboratory Results 09/02/20 Range/Units 06:25 WBC Pending RBC Pending Hgb Pending Hct Pending MCV Pending MCH Pending MCHC Pending Plt Count Pending Diagnostic Findings Peritoneal cultures demonstrated Bacteroides species (1) Acute appendicitis Acute appendicitis type: unspecified acute appendicitis type Qualified Code(s): K35.80 - Unspecified acute appendicitis
[2020-09-02] MEDS ORDERED: bisacodyL 10 MG SUPP PR ONE (07:20)
[2020-09-02 07:22] LABS: Basophils # (auto) 0.03 K/uL (0-0.2); Basophils % (auto) 0.3 %; Eosinophils # (auto) 0.25 K/uL (0-0.5); Eosinophils % (auto) 2.2 %; Hematocrit (blood only) 37.3 % (42-52); Hemoglobin 12.6 g/dL (14.0-18.0); Immature Granulocytes # (auto) 0.06 K/uL (0.00-0.02); Immature Granulocytes % (auto) 0.5 %; Lymphocytes # (auto) 2.39 K/uL (1.2-3.4); Lymphocytes % (auto) 20.6 %; Mean Corpuscular Hemoglobin 30.5 pg (25-34); Mean Corpuscular Hgb Conc 33.8 g/dL (32-36); Mean Corpuscular Volume 90.3 fL (80-100); Monocytes # (auto) 1.31 K/uL (0.11-0.59); Monocytes % (auto) 11.3 %; Neutrophils # (auto) 7.54 K/uL (1.4-6.5); Neutrophils % (auto) 65.1 %; Platelet Count 329 K/uL (130-400); RDW Coefficient of Variation 12.8 % (11.5-14.5); RDW Standard Deviation 42.2 fL (36.4-46.3); Red Blood Count 4.13 M/uL (4.7-6.1); White Blood Count 11.58 K/uL (4.8-10.8)
[2020-09-02] MEDS: DOCUSATE SODIUM 100 MG CAP PO SCH (07:40)
--- NOTE | 2020-09-12 08:31 | Discharge Summary ---
Date of Service September 12, 2020 Admission HPI Per Admitting Provider This is a 20-year-old male who presented to the emergency room for complaint of abdominal pain that began 2-1/2 days ago. It began in the periumbilical area as a dull ache. Now it is quite sharp. It is more towards the right side but he describes discomfort throughout his abdomen. He does not think he had fever but he has had nausea and multiple episodes of vomiting without hematemesis. His bowels have been moving regularly. He is never had pain similar to this in the past. He does describe having eaten oysters prior to the onset of the pain, nausea and vomiting. Principal Diagnosis acute appendicitis Discharge Data Allergies Allergy/AdvReac Type Severity Reaction Status Date / Time No Known Allergies Allergy Unverified 08/29/20 07:28 Consultations 08/29/20 05:31 ED Decision to Admit Stat Procedures Performed Operation Date: 08/29/20 12:00 Actual Procedures p Laparoscopic Appendectomy(Not Applicable) - Kade Young MD Ordered Studies 08/29/20 04:05 CT abd pelvis wo con Urgent Hospital Course (1) Acute appendicitis: Patient was taken to operating room for laparoscopic appendectomy possible open by Dr. Young from emergency department. Patient was found to have acute appendicitis with no evidence of abscess or perforation however there was turbid fluid in the abdomen which was cultured. Patient tolerated procedure well and was transferred to recovery than to medical/surgical floor for postoperative care. Diet was advanced to clear liquids, IV Morphine with PO Percocet prn pain, IV Zosyn, IV Zofran prn nausea, activity as tolerated, and IV fluids at 15 mls/hr KVO. POD # 1, afebrile, vitals stable, preop pain improved, leukocytosis improved to 16K (25k preop). IV antibiotics continued as culture still pending. POD # 2, afebrile, vitals stable, pain improved mostly having gas pains with some nausea and bloating. IV Toradol added to limit narcotics. Encouraged ambulation and diet as tolerated. POD # 3, passing gas but no bowel movement. Still with some nausea at times and bloating and belching. Advised clear liquids only, suppository to help stimulate bowel movement, limit narcotics, and ambulate. POD # 4 , afebrile, vss, leukocytosis down to 11K. Patient was encouraged to continue to ambulate and diet as tolerated. Patient was discharged home on POD # 4 in stable condition with course of oral Augmentin and Flagyl. Total Time Total Time Spent Total Time Spent (In Minutes): 30 Total Time Includes: Examination of the Patient, Discharge Planning and Medication Reconciliation Discharge Plan Discharge Items Patient Disposition: Home - Self-Care Reason For Visit: APPENDICITIS Discharge Diagnosis: acute appendicits Activity: Per Instructions section Non-emergency contact: Surgeon Call non-emergency contact if: you have any medication questions, your pain is not controlled, your pain is worsening, your pain is concerning for you, you have a fever, your temperature is above 101, your wound has increased redness, your wound has increased drainage and your wound pain has increased Follow-up/Referrals: [facility] [Primary Care Provider] - 09/09/20 9:20 am Diet: Regular Diet Comment: advance diet slowly as tolerated, smaller frequent meals Addtl Attending Provider Instructions: Post-Surgical ~Discharge Instructions Activity Recommendations: - lifting limitation: (10 pounds for 2 weeks), - exercise/sex/sports limit: (nonstrenuous for 2 weeks), - driving or machine use limit: (none for 1 week or until pain free and no longer taking narcotic pain medication), - Shower/bathe limit: (may shower) Diet: - Resume previous diet , advance diet slowly as tolerated. Smaller frequent meals recommend first few days after discharge. SPECIAL CARE INSTRUCTIONS: - May shower. Let water run over area and pat dry. - Leave steri strips on for one week. - Call the surgeon's office with any questions or concerns - - (ex. temperature higher than 101 degrees F, excessive bleeding or pain). MEDICATIONS: - Resume previous medications unless instructed otherwise by your surgeon. - May alternate extra strength Tylenol and Ibuprofen as needed for mild pain throughout the day -650 mg Tylenol every 6 hours as needed - Ibuprofen 600 mg every 6 hours as needed (take with food) - Percocet 1 every 4 hours, as needed for moderate to severe pain - Recommend taking stool softener daily (Colace) while taking narcotic pain medication to prevent constipation and straining - Take antibiotics as prescribed for duration recommended (7 days) FOLLOW UP VISIT: - If not already scheduled, please call the office to schedule a two week follow-up appointment. Office number Pending Studies at Discharge: Yes Stand-Alone Forms: My [facility], Opioid Pain Management, Smoking Cessation Medications and DC Order Prescriptions: New amoxicillin-pot clavulanate [Augmentin] 875-125 mg tablet 1 tab PO BID Qty: 14 RF: 0 oxycodone-acetaminophen [Percocet] 5-325 mg tablet 1 tab PO Q4H PRN (Reason: pain) Qty: 10 RF: 0 No Action No Known Home Medications RF: 0 Discharge Orders: Discharge Order (Routine); Ordered 09/02/20 Ordered By: Kade Arevalo/Other Patient Handouts: DVT Post Op Prevention Admission Data Admit Date/Time: 08/31/20 14:40 Attending Provider: Kade Young Admit Provider: Kade Young Primary Care Provider: [place] Other Providers: Kade Young Other Interventions: Discharge Summary Assessment (RN) Last Done: 09/02/20 12:42
== END 2020-09-02 14:33 | disposition home or self-care (01) | DRG 343 ==
LOC: ED 03:44 → OR 08:42 → 3N 08:42